=== PATIENT | male | born 1985 | race Caucasian/White ===

== ENCOUNTER 2021-12-06 17:22 | Emergency (ER) | payer MEDICAID ==
[~2021-12-06] VITALS: Ht 170.2 cm; Wt 130.0 kg
[2021-12-06 17:43] VITALS: BP 128/90
== END 2021-12-06 17:53 | disposition home or self-care (01) ==
LOC: ER 17:23
DX: Z04.1 Encounter for examination and observation following transport accident (principal); F17.200 Nicotine dependence, unspecified, uncomplicated; Z72.89 Other problems related to lifestyle; V87.7XXA Person injured in collision between other specified motor vehicles (traffic), initial encounter; Y93.89 Activity, other specified; Y92.89 Other specified places as the place of occurrence of the external cause; Y99.8 Other external cause status
CPT/HCPCS: 99283